=== PATIENT | female | born 1985 | race Caucasian/White ===

== ENCOUNTER 2017-06-20 09:05 | Outpatient (CLI) | payer OTHER ==
--- NOTE | 2017-06-20 12:24 | ULT ---
OB ULTRASOUND: HISTORY: Size and dates. FINDINGS: There is a single viable intrauterine gestation. Gestational age by ultrasound is 19 weeks 1 day. B iometry measurements are consistent as below. BPD: 19 weeks 3 days. HC: 19 weeks 3 days. AC: 19 weeks 0 day. FL: 19 weeks 1 day. position: vertex. Placenta: posterior. Amniotic fluid: within normal range. LORRI recorded at 11.8 cm. heart rate: 128 b.p.m. Cervical length: 4.0 cm. anatomy evaluated includes intracranial contents, 4-chamber heart, stomach, kidneys, cord inser tion, bladder, spine, face, extremities, and 3-vessel cord. No abnormality identified. IMPRESSION: A 19-week 1-day gestational age by ultrasound. No abnormality identified. POS: EMERALD
== END 2017-06-20 09:06 | disposition home or self-care (01) ==
LOC: SCSULT 09:05
PROVIDERS: ATTEND Family Medicine
DX: Z34.82 Encounter for supervision of other normal pregnancy, second trimester (principal); Z3A.19 19 weeks gestation of pregnancy
CPT/HCPCS: 76805

== ENCOUNTER 2017-11-20 05:30 | Inpatient (IN) | payer OTHER ==
[2017-11-20 05:59] VITALS: BMI 27.6
[2017-11-20] MEDS ORDERED: NS w/ Oxytocin 10 units 500 ML IV SCH ×2 (06:08)
[2017-11-20] MEDS ORDERED: Ondansetron HCl/PF 4 MG/2 ML Vial IVP PRN ×3 (06:08→16:29)
[2017-11-20] MEDS ORDERED: HYDROcodone/Acetaminophen 5/325 mg Tablet PO PRN ×2 (06:08→16:29)
[2017-11-20] MEDS ORDERED: Misoprostol 200 MCG TAB PR PRN (06:08)
[2017-11-20] MEDS ORDERED: Promethazine HCl 25 MG/ML VIAL IM PRN ×2 (06:08→12:43)
[2017-11-20] MEDS ORDERED: Acetaminophen 500 MG TAB PO PRN (06:08)
[2017-11-20] MEDS ORDERED: Ibuprofen 800 MG TAB PO PRN (06:08)
[2017-11-20] MEDS ORDERED: Butorphanol Tartrate 1 MG/ML VIAL SLOW IVP PRN (06:08)
[2017-11-20] MEDS ORDERED: Lidocaine 1% (PF) 30 ML VIAL SC PRN (06:08)
[2017-11-20] MEDS ORDERED: Acetaminophen/Codeine 30-300mg Tablet PO PRN ×2 (06:08→16:29)
[2017-11-20] MEDS: Lactated Ringer's 1,000 ML IV SCH ×3 (06:39→12:30)
[2017-11-20 07:04] LABS: Hemoglobin 12.5 g/dL (12.0-16.0); Mean Corpuscular HGB CONC 34.5 g/dL (32.0-36.0); Mean Corpuscular Hemoglobin 31.3 pg (27.0-31.0); Mean Corpuscular Volume 90.7 fL (78.0-98.0); Mean Platelet Volume 10.1 fL (7.4-10.4); Platelet Count 158 thou/uL (130-400); RBC Distribution Width 12.8 % (11.5-14.5); Red Blood Cell (RBC) Count 3.98 mill/uL (4.20-5.40); White Blood Cell (WBC) Count 9.3 thou/uL (4.8-10.8)
[2017-11-20 07:44] LABS: HBSAg Index 0.18 S/CO (0-0.99); Hep B Surf Ag Non-Reactive S/CO (NonReactive); Syphilis Antibody Nonreactive (Nonreactive); Syphilis Antibody Index 0.05 S/CO (<1.00 Non-Reactive)
[2017-11-20] MEDS ORDERED: Bupivacaine 0.5% 20 ML, fentaNYL Citrate/PF 400 MCG in Sodium Chloride 0.9% 72 ML EPIDURAL SCH (11:30)
[2017-11-20] MEDS ORDERED: DISCONTINUE ALL PREVIOUS NARCOTICS FS SCH (11:30)
[2017-11-20] MEDS ORDERED: Lactated Ringer's 500 ML IV PRN (12:43)
[2017-11-20] MEDS ORDERED: ePHEDrine/0.9% NaCl/PF SYRINGE 50 mg/10 ml SLOW IVP PRN (12:43)
[2017-11-20] MEDS ORDERED: Eucerin (Mineral Oil/Petrolatum,White) 30 gm Jar TOP PRN (12:43)
[2017-11-20] MEDS ORDERED: Naloxone HCl 0.4 mg/ml Vial IVP PRN ×2 (12:43)
[2017-11-20] MEDS ORDERED: Acetaminophen 325 MG TAB PO PRN (12:43)
[2017-11-20] MEDS ORDERED: diphenhydrAMINE 50 MG/ML VIAL IVP PRN (12:43)
[2017-11-20] MEDS ORDERED: Communication Order-Pharmacy FS SCH (12:45)
[2017-11-20] MEDS ORDERED: fentaNYL Citrate/PF 400 MCG, Bupivacaine 0.5% 20 ML in Sodium Chloride 0.9% 72 ML EPIDURAL SCH (12:45)
[2017-11-20] MEDS: NS / Oxytocin 40 units/1000ml 1,000 ML IV PRN ×2 (14:00→16:09)
[2017-11-20] MEDS ORDERED: Bisacodyl 10 MG SUPP PR PRN (16:29)
[2017-11-20] MEDS ORDERED: Preparation H Ointment 28 GM TUBE PR PRN (16:29)
[2017-11-20] MEDS ORDERED: diphenhydrAMINE 25 MG CAP PO PRN (16:29)
[2017-11-20] MEDS ORDERED: Benzocaine/Menthol 20-0.5% 60 ML CAN TOP PRN (16:29)
[2017-11-20] MEDS ORDERED: Milk Of Magnesia 30 ML UDCUP PO PRN (16:29)
[2017-11-20] MEDS ORDERED: Lanolin Ointment 7 GM TUBE TOP PRN (16:29)
[2017-11-20] MEDS ORDERED: NS / Oxytocin 40 units/1000ml 1,000 ML IV SCH (16:29)
[2017-11-20] MEDS: Ibuprofen 800 MG TAB PO SCH (17:17)
[2017-11-20] MEDS: Ferrous Sulfate 325 MG TAB PO SCH (17:17)
[2017-11-20] MEDS ORDERED: Lidocaine 2% PF Inj 2 ML VIAL ONE (21:00)
[2017-11-20] MEDS: Docusate Calcium (SURFAK) 240 MG CAP PO SCH (21:07)
[2017-11-21] MEDS: Ibuprofen 800 MG TAB PO SCH ×3 (00:25→21:11)
[2017-11-21 06:05] LABS: Hemoglobin 11.1 g/dL (12.0-16.0); Mean Corpuscular HGB CONC 34.1 g/dL (32.0-36.0); Mean Corpuscular Hemoglobin 31.4 pg (27.0-31.0); Platelet Count 126 thou/uL (130-400); RBC Distribution Width 12.8 % (11.5-14.5); Red Blood Cell (RBC) Count 3.52 mill/uL (4.20-5.40); White Blood Cell (WBC) Count 9.9 thou/uL (4.8-10.8)
[2017-11-21] MEDS: Docusate Calcium (SURFAK) 240 MG CAP PO SCH ×2 (12:42→21:11)
[2017-11-21] MEDS: Ferrous Sulfate 325 MG TAB PO SCH ×2 (12:43→18:04)
[2017-11-21] MEDS: Prenatal Vitamin 1 TAB PO SCH (12:43)
[2017-11-22] MEDS: Ibuprofen 800 MG TAB PO SCH (04:38)
[2017-11-22] MEDS ORDERED: Ibuprofen 800 MG TAB PO SCH (06:00)
[2017-11-22 08:48] VITALS: BP 101/60; TEMP 98.5
[2017-11-22] MEDS: Ferrous Sulfate 325 MG TAB PO SCH (09:20)
[2017-11-22] MEDS: Docusate Calcium (SURFAK) 240 MG CAP PO SCH (10:23)
[2017-11-22] MEDS: Prenatal Vitamin 1 TAB PO SCH (10:23)
== END 2017-11-22 11:30 | disposition home or self-care (01) | DRG 775 ==
LOC: L&D 05:37 → 3SE 16:28
PROVIDERS: ADMIT Family Medicine; ATTEND Family Medicine
PROC: 10E0XZZ Delivery of Products of Conception, External Approach (ICD-10-PCS; principal; 2017-11-20)
PROC: 4A0HXCZ Measurement of Products of Conception, Cardiac Rate, External Approach (ICD-10-PCS; 2017-11-20)
PROC: 3E033VJ Introduction of Other Hormone into Peripheral Vein, Percutaneous Approach (ICD-10-PCS; 2017-11-20)
DX: O48.0 Post-term pregnancy (principal); Z3A.41 41 weeks gestation of pregnancy; Z37.0 Single live birth; I48.91 Unspecified atrial fibrillation; O75.89 Other specified complications of labor and delivery
CPT/HCPCS: 36415; 51702; 85027; 86780; 86850; 86900; 86901; 87340; J3010; J3490; J7050

== ENCOUNTER 2018-10-13 08:18 | Outpatient (CLI) | payer OTHER ==
--- NOTE | 2018-10-13 09:03 | MMO ---
Bilateral MAMMO Bilat Diag [facility]. CLINICAL HISTORY: Patient is 33 years old and is seen for diagnostic exam and lump or thickening in the outer region of the left breast. The patient has the following family history of breast cancer: maternal grandmother and paternal grandmother. The patient has no personal history of cancer. VIEWS: The views performed were: bilateral craniocaudal with tomosynthesis; bilateral mediolateral oblique with tomosynthesis; and bilateral mediolateral with tomosynthesis. FILMS COMPARED: The present examination has been compared to a prior imaging study performed at [facility] on 10/13/2018. MAMMOGRAM FINDINGS: The breasts are extremely dense, which may lower the sensitivity of mammography. Benign calcifications are noted bilaterally. There are no suspicious masses, suspicious calcifications, or new areas of architectural distortion. IMPRESSION: THERE IS NO MAMMOGRAPHIC EVIDENCE OF MALIGNANCY. A ROUTINE FOLLOW-UP MAMMOGRAM AT AGE 41 IS RECOMMENDED. THE RESULTS OF THIS EXAM WERE SENT TO THE PATIENT. ACR BI-RADS Category 2 - Benign finding MAMMOGRAPHY NOTE: 1. A negative mammogram report should not delay a biopsy if a dominant of clinically suspicious mass is present. 2. Approximately 10% to 15% of breast cancers are not detected by mammography. 3. Adenosis and dense breasts may obscure an underlying neoplasm. Reported by: Janee FLYNN Electonically Signed: [id number]
--- NOTE | 2018-10-13 09:54 | ULT ---
ULTRASOUND LEFT BREAST: Date: 10/13/18 HISTORY: Left breast pain. COMPARISON: Mammogram same date. FINDINGS: Real-time Rojas scale and color evaluation of the area of interest in the upper outer left breast was interrogated in real time by the technologist and the radiologist in person. No abnormal mass. Normal proliferative breast tissue. IMPRESSION: BI-RADS Category 2 - Benign findings. Screening mammography at age 41 recommended. POS: OFF
== END 2018-10-13 08:19 | disposition home or self-care (01) ==
LOC: BICMAMMO 08:18
PROVIDERS: ATTEND Family Medicine
DX: N63.20 Unspecified lump in the left breast, unspecified quadrant (principal); Z80.3 Family history of malignant neoplasm of breast
CPT/HCPCS: 77066; G0279